=== PATIENT | male | born 1965 | race African-American/Black ===

== ENCOUNTER 2022-07-19 14:47 | Emergency (ER) | payer OTHER ==
[2022-07-19 15:14] VITALS: BP 183/114; PULSE 88; RESP 18; TEMP 98.7; BMI 28.1
[2022-07-19] MEDS ORDERED: DIPHTH,PERTUSS(ACELL),TET 0.5 ML DISP.SYRIN IM ONE ×2 (16:00→16:06)
== END 2022-07-19 16:20 | disposition home or self-care (01) ==
LOC: FER 14:47
PROC: 0HQFXZZ Repair Right Hand Skin, External Approach (ICD-10-PCS; principal; 2022-07-19)
PROC: 3E0234Z Introduction of Serum, Toxoid and Vaccine into Muscle, Percutaneous Approach (ICD-10-PCS; 2022-07-19)
DX: S61.214A Laceration without foreign body of right ring finger without damage to nail, initial encounter (principal)
CPT/HCPCS: 90715; 99284-25